=== PATIENT | male | born 2000 | race Hispanic/Latino ===

== ENCOUNTER → 2024-12-10 | Emergency (ER) | payer SELFPAY ==
[~2024-12-10] VITALS: Ht 172.7 cm; Wt 82.6 kg
[2024-12-10 20:35] VITALS: BP 121/64; PULSE 64; RESP 20; TEMP 97.8
--- NOTE | 2024-12-10 21:08 | ERN ---
ED Note History of Present Illness Stated Complaint: C/O WEAKNESS W/DIZZINESS Chief Complaint: Weakness Time Seen by MD: 21:03 Dictation: Patient eloped from ED lobby prior to evaluation by this provider Allergies: Coded Allergies: No Known Allergies (Unverified Allergy, Unknown, 12/10/24) Past Medical History Past Medical History: Asthma, Other Additional Past Medical Hx: SINUS PROBLEMS Surgical History: Appendectomy RN Note Reviewed/Agreed w/PFSH: Yes Review of System Dictation Eloped Initial Vital Sign VS Vital Signs Date Time Temp Pulse Resp B/P (MAP) Pulse Ox O2 Delivery O2 Flow Rate FiO2 12/10/24 20:35 97.9 64 20 121/64 100 Room Air Physical Exam Dictation Eloped ED Course ED Course Orders Procedure Category Date Status Time Influenza Type A & B, LAB 12/10/24 Logged Rapid 21:08 Covid Rna Naat LAB 12/10/24 Logged 21:08 Vital Signs Date Time Temp Pulse Resp B/P (MAP) Pulse Ox O2 Delivery O2 Flow Rate FiO2 12/10/24 20:35 97.9 64 20 121/64 100 Room Air Eloped from ED lobby Medical Decision Making MDM eloped DX & DISP Disposition: Other(Comment) (eloped after triage) Departure Impression: Primary Impression: Eloped from emergency department Condition: Stable Referrals: NONE (PCP) DHRUV LEWIS NP Dec 10, 2024 21:08
--- NOTE | 2024-12-10 21:20 | NUR ---
CALLED FOR PT IN LOBBY TO [facility] ORDERED. PT NOT FOUND IN LOBBY.
--- NOTE | 2024-12-10 21:42 | NUR ---
CALLED FOR PT IN LOBBY; NO RESPONSE; PT NOT FOUND IN LOBBY.
== END ==
LOC: EDH 20:31
DX: R53.1 Weakness (principal); R42 Dizziness and giddiness; J45.909 Unspecified asthma, uncomplicated; Z90.49 Acquired absence of other specified parts of digestive tract; Z53.21 Procedure and treatment not carried out due to patient leaving prior to being seen by health care provider